=== PATIENT | female | born 1955 | race Caucasian/White ===

== ENCOUNTER → 2016-10-13 | Outpatient (CLI) | payer OTHER ==
[~2016-10-13] MED LIST: AUGMENTIN PO; B/P MED; BENZONATATE PO; CALCIUM + D 6001 TA1 PO; DIOVAN PO; FLEXERIL10 MG PO; HYDROCODON-ACE1 EAC7 PO; LEVAQUIN750 MG PO; LISINOPRIL-HCTZ1 T14 PO; LISINOPRIL20 MG PO; LORTAB 7.5-5001 TAB PO; VICODIN 5/500 T1 TAB PO; VITAL-D RX TABL1 TAB
--- NOTE | ~2016-10-13 | CT55 ---
[facility] A Service of [facility] & [facility] RADIOLOGY TEXT RESULTS PATIENT: LUDIN TOUSSAINT LOCATION: [facility] : 57 UNIT #: [id number] AGE: [address]: Lyla Zhang MD SEX: F ORDER DR: [id number] [facility] [address] [place], [place] [address] [id number] O MR#: [id number] Acc #: [id number] NAME: LUDIN TOUSSAINT. : 1955 SEX: F STUDY DATE/TIME: 10/13/2016 11:40 UNIT: [facility] ROOM: STUDY DESCRIPTION: CT Chest W Con Attending Physician: Lyla Zhang M.D. Referring Physician: Lyla Zhang M.D. Ordering Physician: Lyla Zhang M.D. Primary Care Physician: Kerry Clayton A.P.R.N. MEDICAL IMAGING REPORT This report is preliminary unless electronic signature is present EXAM CT chest. DATE OF EXAM 10/13/2016 INDICATIONS Lymphoma. 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 Restaging. TECHNIQUE CT of the chest utilizing 100 mL Isovue-370 IV contrast. Coronal and sagittal reconstructions were obtained. NOTE: This CT exam was performed with one or more of the following radiation dose reduction techniques: automatic exposure control, adjustment of mA and/or kV according to patient size, and iterative reconstruction. COMPARISON Concurrent CT abdomen and pelvis dated 10/13/[address] chest dated 07/27/2016. FINDINGS No enlarged mediastinal or hilar lymph nodes. No pericardial or pleural effusion. Thoracic aorta is normal in caliber. There is a small 1.6 cm left thyroid nodule, unchanged from the prior study. No new pulmonary opacities. No focal consolidation. There is a small 4 mm pulmonary nodule in the medial right lower lobe which is unchanged from prior exam. There is benign calcified granuloma in the left upper lobe. No new osseous abnormalities. There has been prior fusion across the thoracolumbar junction. There has been prior T12 compression fracture with subsequent surgical fixation. There is retropulsion of the T12 STS. [facility] A Service of [facility] & [facility] RADIOLOGY TEXT RESULTS PATIENT: LUDIN TOUSSAINT LOCATION: [facility] #: [id number] : 57 UNIT #: [id number] AGE: [address]: Lyla Zhang MD SEX: F ORDER DR: vertebral body as well as exaggerated kyphosis. This is unchanged. IMPRESSION 1. No evidence of disease progression. No abnormal lymphadenopathy in the chest. 2. Small 4 mm pulmonary nodule in the medial right lower lobe is unchanged. Dictated by... Raghu Duarte M.D. THIS IS AN ELECTRONICALLY VERIFIED REPORT Raghu Duarte M.D. at 10/14/2016 7:53 AM TURNER/stan TD: 10/13/2016 17:37 JOB #: [id number] MEDICAL IMAGING REPORT Page 1 of 1 COPY
--- NOTE | ~2016-10-13 | CT2 ---
[facility] A Service of [facility] & [facility] RADIOLOGY TEXT RESULTS PATIENT: LUDIN TOUSSAINT LOCATION: [facility] : 57 UNIT #: [id number] AGE: [address]: Lyla Zhang MD SEX: F ORDER DR: [id number] [facility] [address] [place], [place] [address] [id number] O MR#: [id number] Acc #: [id number] NAME: LUDIN TOUSSAINT. : 1955 SEX: F STUDY DATE/TIME: 10/13/2016 11:40 UNIT: [facility] ROOM: STUDY DESCRIPTION: CT Abd and Pelv W Cont Attending Physician: Lyla Zhang M.D. Referring Physician: Lyla Zhang M.D. Ordering Physician: Lyla Zhang M.D. Primary Care Physician: Kerry Clayton A.P.R.N. MEDICAL IMAGING REPORT This report is preliminary unless electronic signature is present EXAM CT abdomen and pelvis. DATE OF EXAM 10/13/2016 INDICATIONS Lymphoma. Diffuse large B-cell lymphoma with intrathoracic lymph nodes. Secondary malignancy neoplasm of bone. Staging. TECHNIQUE CT of the abdomen and pelvis with p.o. and IV contrast (100 mL Isovue-370 IV contrast). Coronal and sagittal reconstructions were obtained. NOTE: This CT exam was performed with one or more of the following radiation dose reduction techniques: automatic exposure control, adjustment of mA and/or kV according to patient size, and iterative reconstruction. COMPARISON CT abdomen and pelvis dated 07/27/2016. FINDINGS The liver, gallbladder, pancreas, and kidneys are unchanged. There is a small cyst in the left kidney, and a nonobstructing left renal calculi. A right adrenal nodule measures 1.5 cm, unchanged. There is a central area of hypodensity within the spleen. This measures up to 1.7 cm, unchanged. No pathologically enlarged retroperitoneal or mesenteric lymph nodes. The bowel is not dilated. PELVIS: There are multiple fibroids extending off the uterus. The ovaries are within normal limits. The bladder is unremarkable. No enlarged pelvic or inguinal lymph nodes. IMPRESSION STS. [facility] A Service of [facility] & [facility] RADIOLOGY TEXT RESULTS PATIENT: LUDIN TOUSSAINT LOCATION: [facility] : 57 UNIT #: [id number] AGE: [address]: Lyla Zhang MD SEX: F ORDER DR: 1. No evidence of disease progression. 2. Low attenuation lesion in the spleen are unchanged. 3. Interval surgical fixation of the T12 compression fracture. Dictated by... Raghu Duarte M.D. THIS IS AN ELECTRONICALLY VERIFIED REPORT Raghu Duarte M.D. at 10/14/2016 7:53 AM TURNER/stan TD: 10/13/2016 18:10 JOB #: [id number] MEDICAL IMAGING REPORT Page 1 of 1 COPY
[2016-10-13 16:31] LABS: POC - CREATININE 0.72 mg/dL (0.44-1.03); POC - GFR >60.0 mL/min (>60)
== END | disposition home or self-care (01) ==
LOC: CECH 09:07
PROVIDERS: Internal Medicine Hematology
DX: C83.32 Diffuse large B-cell lymphoma, intrathoracic lymph nodes (principal); C79.51 Secondary malignant neoplasm of bone; R59.1 Generalized enlarged lymph nodes; R91.1 Solitary pulmonary nodule; D73.89 Other diseases of spleen; Z87.311 Personal history of (healed) other pathological fracture; Z98.890 Other specified postprocedural states
CPT/HCPCS: 71260; 74177; 82565; 93306; J1642; Q9967

== ENCOUNTER → 2017-01-15 | Outpatient (CLI) | payer OTHER ==
--- NOTE | ~2017-01-15 | CT55 ---
[facility] A Service of [facility] RADIOLOGY TEXT RESULTS PATIENT: LUDIN TOUSSAINT LOCATION: [facility] : 57 UNIT #: [id number] AGE: [address]: Lyla Zhang MD SEX: F ORDER DR: [id number] [facility] [address] [place], [place] [address] [id number] O MR#: [id number] Acc #: [id number] NAME: LUDIN TOUSSAINT. : 1955 SEX: F STUDY DATE/TIME: 01/15/2017 14:02 UNIT: [facility] ROOM: STUDY DESCRIPTION: CT Chest W Con Attending Physician: Lyla Zhang M.D. Referring Physician: Lyla Zhang M.D. Ordering Physician: Lyla Zhang M.D. Primary Care Physician: Kerry Clayton A.P.R.N. MEDICAL IMAGING REPORT This report is preliminary unless electronic signature is present EXAM CT chest with contrast INDICATIONS Follow up lymphoma. TECHNIQUE CT chest performed with contrast. Coronal and sagittal reformatted images were obtained. This CT exam was performed with one or more of the following radiation dose reduction techniques: automatic exposure control, adjustment of mA and/or kV according to patient size, and iterative reconstruction. COMPARISON STUDIES 10/13/2016. FINDINGS There is a stable micronodule in the right lower lobe on image 39. There is a stable micronodule in the right lower lobe on image 30. Stable left thyroid nodule. No suspicious lymphadenopathy or pleural effusion. Bone windows show postoperative changes of the thoracolumbar spine. IMPRESSION Stable tiny nodules within the right lung. No evidence for lymphadenopathy. Dictated by... Haile Mahan M.D. THIS IS AN ELECTRONICALLY VERIFIED REPORT [facility] A Service of [facility] RADIOLOGY TEXT RESULTS PATIENT: LUDIN TOUSSAINT LOCATION: [facility] : 57 UNIT #: [id number] AGE: [address]: Lyla Zhang MD SEX: F ORDER DR: Haile Mahan M.D. at 01/18/2017 7:26 AM ARS/pcl TD: 01/15/2017 21:45 JOB #: [id number] MEDICAL IMAGING REPORT Page 1 of 1 COPY
--- NOTE | ~2017-01-15 | CT2 ---
[facility] A Service of [facility] & [facility] RADIOLOGY TEXT RESULTS PATIENT: LUDIN TOUSSAINT LOCATION: [facility] : 57 UNIT #: [id number] AGE: [address]: Lyla Zhang MD SEX: F ORDER DR: [id number] [facility] [address] [place], [place] [address] [id number] O MR#: [id number] Acc #: [id number] NAME: LUDIN TOUSSAINT. : 1955 SEX: F STUDY DATE/TIME: 01/15/2017 14:02 UNIT: [facility] ROOM: STUDY DESCRIPTION: CT Abd and Pelv W Cont Attending Physician: Lyla Zhang M.D. Referring Physician: Lyla Zhang M.D. Ordering Physician: Lyla Zhang M.D. Primary Care Physician: Kerry Clayton A.P.R.N. MEDICAL IMAGING REPORT This report is preliminary unless electronic signature is present EXAM CT of the abdomen and pelvis with contrast. INDICATIONS Follow up lymphoma. Routine surveillance. TECHNIQUE CT of the abdomen and pelvis was performed following the administration of IV contrast. Coronal and sagittal reformatted images were obtained. This CT exam was performed with one or more of the following radiation dose reduction techniques: automatic exposure control, adjustment of mA and/or kV according to patient size, and iterative reconstruction. COMPARISON Comparison with 10/13/2016. FINDINGS There is a tiny area of presumed vascular shunting in the anterior liver. The gallbladder is unremarkable. The spleen again shows some areas of low attenuation. An indexed area of low attenuation measures about 1.6 cm which is not significantly changed. There is a cyst in the left kidney. The right kidney is unremarkable. There is stable right adrenal gland nodule and stable left adrenal gland thickening. Pancreas is unremarkable. PELVIS: Multiple uterine fibroids are again noted. The colon is unremarkable. No evidence for lymphadenopathy. The bone windows show postoperative changes of the spine. IMPRESSION 1. Stable exam without evidence of disease progression. 2. Stable low attenuation areas in the spleen. 3. Stable right adrenal gland nodule. STS. [facility] A Service of [facility] & [facility] RADIOLOGY TEXT RESULTS PATIENT: LUDIN TOUSSAINT LOCATION: [facility] : 57 UNIT #: [id number] AGE: [address]: Lyla Zhang MD SEX: F ORDER DR: Dictated by... Haile Mahan M.D. THIS IS AN ELECTRONICALLY VERIFIED REPORT Haile Mahan M.D. at 01/18/2017 7:26 AM JASMIN/stan TD: 01/15/2017 21:53 JOB #: [id number] MEDICAL IMAGING REPORT Page 1 of 1 COPY
[2017-01-15 15:00] LABS: POC - CREATININE 0.76 mg/dL (0.44-1.03); POC - GFR >60.0 mL/min (>60)
== END | disposition home or self-care (01) ==
LOC: CCAT 12:36
PROVIDERS: Internal Medicine Hematology
DX: C83.32 Diffuse large B-cell lymphoma, intrathoracic lymph nodes (principal); C79.51 Secondary malignant neoplasm of bone; R59.1 Generalized enlarged lymph nodes; R91.8 Other nonspecific abnormal finding of lung field; E27.8 Other specified disorders of adrenal gland
CPT/HCPCS: 71260; 74177; 82565; Q9967